=== PATIENT | female | born 1965 | race Caucasian/White ===

== ENCOUNTER 2025-03-05 14:33 | Inpatient (IN) ==
[2025-03-05] MEDS ORDERED: IOPAMIDOL 100 ML BOTTLE IV ONE (14:34)
[2025-03-05] MEDS: 0.9 % SODIUM CHLORIDE 1,000 ML IV ONE ×2 (15:38→16:59)
[2025-03-05] MEDS: KETOROLAC 15 MG/ML VIAL IV ONE ×2 (15:38→16:55)
[2025-03-05 16:16] LABS: ALT/SGPT 28 U/L (<40); AST/SGOT 33 U/L (<32); Albumin 3.0 gm/dL (3.2-5.2); Albumin/Globulin Ratio 0.9 (1.0-2.3); Alkaline Phosphatase 132 U/L (39-117); Anion Gap 14.0 (8.0-16.0); Bilirubin,Total 0.6 mg/dL (0.1-1.0); Blood Urea Nitrogen 19 mg/dL (6-20); Calcium 8.9 mg/dL (8.6-10.4); Carbon Dioxide 19 mmol/L (22-30); Chloride 95 mmol/L (96-108); Globulin 3.5 gm/dL (2.2-3.7); Glucose 314 mg/dL (70-105); Potassium 4.0 mmol/L (3.3-5.1); Sodium 128 mmol/L (133-145)
[2025-03-05 16:53] LABS: Basophils # (Auto) 0.03 K/mcL (0.00-0.30); Basophils % (Auto) 0.3 % (0.0-2.0); Eosinophils # (Auto) 0.02 K/mcL (0.00-0.70); Eosinophils % (Auto) 0.2 % (0.0-7.0); Hematocrit 34.9 % (34.1-44.9); Hemoglobin 12.1 g/dL (11.2-15.7); Lymphocytes # (Auto) 0.37 K/mcL (1.50-4.80); Lymphocytes % (Auto) 3.4 % (15.5-49.0); Mean Corpuscular HGB Conc 34.7 g/dL (31.0-36.0); Monocytes # (Auto) 0.36 K/mcL (0.10-0.90); Monocytes % (Auto) 3.3 % (1.0-12.0); Neutrophils % (Auto) 92.0 % (38.0-78.0); Platelet Count 183 K/mcL (140-440); RBC 3.76 M/mcL (3.59-5.38); WBC 11.0 K/mcL (4.5-11.0)
[2025-03-05] MEDS: SODIUM CHLORIDE IV ONE (16:59)
[2025-03-05] MEDS: PIPERACILLIN SODIUM/TAZOBACTAM 3.375 GM in DEXTROSE 5% IN WATER 50 ML IV ONE (17:06)
[2025-03-05 17:27] LABS: Bacteria,Urine Many /hpf (0); Bilirubin,Urine Negative (Negative); Color,Urine Yellow; Glucose,Urine (UA) 100 mg/dL (Negative); Ketones,Urine Negative (Negative); Leukocyte Esterase,Urine Small /uL (Negative); PH,Urine 5.5 (5.0-9.0); Protein,Urine 100 mg/dL (Negative); Specific Gravity,Urine 1.015 (1.000-1.035); Urobilinogen,Urine Normal
[2025-03-05] MEDS: NOREPINEPHRINE 250 ML IV SCH (17:35)
[2025-03-05] MEDS: 0.9 % SODIUM CHLORIDE 250 ML IV SCH (18:35)
[2025-03-05] MEDS ORDERED: VANCOMYCIN PER PHARMACY IV SCH (20:31)
[2025-03-05] MEDS ORDERED: ONDANSETRON 4 MG/2 ML VIAL IV PRN (20:31)
[2025-03-05] MEDS ORDERED: DEXTROSE 31 GM ORAL.SUSP PO PRN (20:31)
[2025-03-05] MEDS ORDERED: DEXTROSE 50% 50 ML VIAL IV PRN (20:31)
[2025-03-05] MEDS: ACETAMINOPHEN 1,000 MG/100 ML BAG IV SCH (20:40)
[2025-03-05] MEDS: 0.9 % SODIUM CHLORIDE 1,000 ML IV SCH (20:41)
[2025-03-05] MEDS: HYDROmorphone 0.5 MG/0.5 ML SYRINGE IV PRN (20:41)
[2025-03-05] MEDS: HYDROmorphone 0.5 MG/0.5 ML SYRINGE ONE (20:47)
[2025-03-05] MEDS: ACETAMINOPHEN 1,000 MG/100 ML BAG IV ONE (20:48)
[2025-03-05] MEDS: PIPERACILLIN SODIUM/TAZOBACTAM 3.375 GM in DEXTROSE 5% IN WATER 100 ML IV SCH (21:08)
[2025-03-05 21:14] LABS: ALT/SGPT 25 U/L (<40); AST/SGOT 29 U/L (<32); Albumin 2.9 gm/dL (3.2-5.2); Albumin/Globulin Ratio 0.9 (1.0-2.3); Alkaline Phosphatase 122 U/L (39-117); Anion Gap 13.0 (8.0-16.0); Bilirubin,Direct 0.3 mg/dL (<0.3); Bilirubin,Total 0.7 mg/dL (0.1-1.0); Blood Urea Nitrogen 20 mg/dL (6-20); Calcium 8.6 mg/dL (8.6-10.4); Carbon Dioxide 19 mmol/L (22-30); Chloride 98 mmol/L (96-108); Globulin 3.3 gm/dL (2.2-3.7); Glucose 329 mg/dL (70-105); Phosphorous 2.1 mg/dL (2.5-4.5); Potassium 3.8 mmol/L (3.3-5.1); Sodium 130 mmol/L (133-145); Triglycerides 187 mg/dL (<150); Uric Acid 4.3 mg/dL (2.5-8.0)
[2025-03-05] MEDS: INSULIN LISPRO 1 UNIT/0.01 ML UNIT SQ SCH (21:16)
[2025-03-05] MEDS: VANCOMYCIN 1,500 MG in 0.9 % SODIUM CHLORIDE 500 ML IV ONE (21:57)
[2025-03-05] MEDS: 0.9 % SODIUM CHLORIDE 10 ML SYRINGE IV SCH (21:57)
[2025-03-05] MEDS: PIPERACILLIN SODIUM/TAZOBACTAM 4.5 GM in DEXTROSE 5% IN WATER 100 ML IV SCH (21:57)
[2025-03-06 06:22] LABS: ALT/SGPT 22 U/L (<40); AST/SGOT 25 U/L (<32); Albumin 2.7 gm/dL (3.2-5.2); Albumin/Globulin Ratio 0.9 (1.0-2.3); Alkaline Phosphatase 114 U/L (39-117); Anion Gap 11.0 (8.0-16.0); Bilirubin,Direct 0.2 mg/dL (<0.3); Bilirubin,Total 0.5 mg/dL (0.1-1.0); Blood Urea Nitrogen 17 mg/dL (6-20); Calcium 8.3 mg/dL (8.6-10.4); Carbon Dioxide 20 mmol/L (22-30); Chloride 101 mmol/L (96-108); Globulin 3.1 gm/dL (2.2-3.7); Glucose 362 mg/dL (70-105); Phosphorous 2.1 mg/dL (2.5-4.5); Potassium 3.4 mmol/L (3.3-5.1); Sodium 132 mmol/L (133-145); Triglycerides 158 mg/dL (<150); Uric Acid 3.8 mg/dL (2.5-8.0)
[2025-03-06 06:39] LABS: Basophils # (Auto) 0.01 K/mcL (0.00-0.30); Basophils % (Auto) 0.1 % (0.0-2.0); Eosinophils # (Auto) 0.02 K/mcL (0.00-0.70); Eosinophils % (Auto) 0.2 % (0.0-7.0); Hematocrit 30.3 % (34.1-44.9); Hemoglobin 10.3 g/dL (11.2-15.7); Lymphocytes # (Auto) 0.42 K/mcL (1.50-4.80); Lymphocytes % (Auto) 3.9 % (15.5-49.0); Mean Corpuscular HGB Conc 34.0 g/dL (31.0-36.0); Monocytes # (Auto) 0.50 K/mcL (0.10-0.90); Monocytes % (Auto) 4.6 % (1.0-12.0); Neutrophils % (Auto) 90.7 % (38.0-78.0); Platelet Count 153 K/mcL (140-440); RBC 3.20 M/mcL (3.59-5.38); WBC 10.9 K/mcL (4.5-11.0)
[2025-03-06] MEDS: INSULIN LISPRO 1 UNIT/0.01 ML UNIT SQ SCH ×2 (08:04→16:38)
[2025-03-06] MEDS: FEXOFENADINE 180 MG TABLET PO SCH (08:19)
[2025-03-06] MEDS: EZETIMIBE 10 MG TABLET PO SCH (08:19)
[2025-03-06] MEDS: ENOXAPARIN 40 MG/0.4 ML SYRINGE SQ SCH (08:20)
[2025-03-06] MEDS: ZINC SULFATE 50 MG CAPSULE PO SCH (08:20)
[2025-03-06] MEDS: ESTRADIOL 1 MG TABLET PO SCH (08:20)
[2025-03-06] MEDS: LEVOTHYROXINE 50 MCG TABLET PO SCH (08:20)
[2025-03-06] MEDS: GABAPENTIN 300 MG CAPSULE PO SCH (08:20)
[2025-03-06] MEDS: NEUTRA PHOS 1 PACKET PO SCH (08:23)
[2025-03-06 08:34] LABS: Estimated Average Glucose(eAG) 174.0 mg/dL; Hemoglobin A1C 7.7 % Hgb (4.0-6.0)
[2025-03-06] MEDS: LISDEXAMFETAMINE 30 MG PO SCH (09:04)
[2025-03-06] MEDS: VANCOMYCIN 1,000 MG in 0.9 % SODIUM CHLORIDE 250 ML IV SCH (10:08)
[2025-03-06] MEDS: LIOTHYRONINE 5 MCG TABLET PO SCH (10:08)
[2025-03-06] MEDS ORDERED: DEXTROSE 50% 50 ML VIAL IV PRN (15:25)
[2025-03-06] MEDS ORDERED: DEXTROSE 31 GM ORAL.SUSP PO PRN (15:25)
[2025-03-06] MEDS ORDERED: LEVALBUTEROL 1.25 MG/3 ML AMPUL.NEB NEB PRN (15:29)
[2025-03-06] MEDS ORDERED: [UNRECOGNIZED DRUG - OTHER] SUB-Q SCH (15:30)
[2025-03-06] MEDS ORDERED: [UNRECOGNIZED DRUG - OTHER] IV SCH (15:30)
[2025-03-06] MEDS ORDERED: traMADol (PP) 50 MG TABLET (#4) PO SCH (15:30)
[2025-03-06] MEDS: NAPROXEN 250 MG TABLET PO SCH (16:41)
[2025-03-06] MEDS ORDERED: [UNRECOGNIZED DRUG - OTHER] PO SCH (21:00)
[2025-03-06] MEDS ORDERED: CRANBERRY FRUIT PO SCH (21:00)
[2025-03-06] MEDS ORDERED: DIGESTIVE ENZYMES PO SCH (21:00)
[2025-03-06] MEDS: VITAMIN D3 25 MCG TABLET PO SCH (21:10)
[2025-03-06] MEDS: GLUCOSAMINE PO SCH (21:11)
[2025-03-06] MEDS: COLLAGEN PO SCH (21:11)
[2025-03-06] MEDS: MONTELUKAST 10 MG TABLET PO SCH (21:11)
[2025-03-06] MEDS: Progesterone Micronized 200 mg capsule PO SCH (21:12)
[2025-03-06] MEDS: INSULIN GLARGINE, HUMAN 1 UNIT/0.01 ML SQ SCH (21:40)
[2025-03-07] MEDS: LEVALBUTEROL 1.25 MG/3 ML AMPUL.NEB NEB PRN (04:45)
[2025-03-07 07:28] LABS: Basophils # (Auto) 0.08 K/mcL (0.00-0.30); Basophils % (Auto) 0.9 % (0.0-2.0); Eosinophils # (Auto) 0.30 K/mcL (0.00-0.70); Eosinophils % (Auto) 3.2 % (0.0-7.0); Hematocrit 36.9 % (34.1-44.9); Hemoglobin 12.3 g/dL (11.2-15.7); Lymphocytes # (Auto) 0.87 K/mcL (1.50-4.80); Lymphocytes % (Auto) 9.3 % (15.5-49.0); Mean Corpuscular HGB Conc 33.3 g/dL (31.0-36.0); Monocytes # (Auto) 0.44 K/mcL (0.10-0.90); Monocytes % (Auto) 4.7 % (1.0-12.0); Neutrophils % (Auto) 81.3 % (38.0-78.0); Platelet Count 198 K/mcL (140-440); RBC 3.90 M/mcL (3.59-5.38); WBC 9.4 K/mcL (4.5-11.0)
[2025-03-07 08:33] LABS: ALT/SGPT 23 U/L (<40); AST/SGOT 23 U/L (<32); Albumin 2.6 gm/dL (3.2-5.2); Albumin/Globulin Ratio 0.8 (1.0-2.3); Alkaline Phosphatase 146 U/L (39-117); Anion Gap 12.0 (8.0-16.0); Bilirubin,Total 0.5 mg/dL (0.1-1.0); Blood Urea Nitrogen 15 mg/dL (6-20); Calcium 8.5 mg/dL (8.6-10.4); Carbon Dioxide 20 mmol/L (22-30); Chloride 100 mmol/L (96-108); Globulin 3.2 gm/dL (2.2-3.7); Glucose 283 mg/dL (70-105); Phosphorous 2.5 mg/dL (2.5-4.5); Potassium 3.1 mmol/L (3.3-5.1); Sodium 132 mmol/L (133-145)
[2025-03-07] MEDS: GABAPENTIN 300 MG CAPSULE PO SCH ×2 (09:10→21:08)
[2025-03-07] MEDS ORDERED: TESTOSTERONE PELLET subcut SCH (11:30)
[2025-03-07] MEDS ORDERED: FLUTICASONE FUROATE VILANTEROL INH PRN (11:38)
[2025-03-07] MEDS ORDERED: SUPPORT PO SCH (21:00)
[2025-03-07] MEDS ORDERED: PROGESTERONE MICRONIZED 200 MG PO SCH (21:00)
[2025-03-07] MEDS: INSULIN GLARGINE, HUMAN 1 UNIT/0.01 ML SQ SCH (21:16)
[2025-03-07] MEDS: prednisoLONE 1% OPHTH DROPS 1ML BOTTLE OU SCH (21:20)
[2025-03-08 06:12] LABS: Basophils # (Auto) 0.03 K/mcL (0.00-0.30); Basophils % (Auto) 0.3 % (0.0-2.0); Eosinophils # (Auto) 0.34 K/mcL (0.00-0.70); Eosinophils % (Auto) 2.9 % (0.0-7.0); Hematocrit 29.5 % (34.1-44.9); Hemoglobin 9.8 g/dL (11.2-15.7); Lymphocytes # (Auto) 1.08 K/mcL (1.50-4.80); Lymphocytes % (Auto) 9.1 % (15.5-49.0); Mean Corpuscular HGB Conc 33.2 g/dL (31.0-36.0); Monocytes # (Auto) 0.97 K/mcL (0.10-0.90); Monocytes % (Auto) 8.1 % (1.0-12.0); Neutrophils % (Auto) 78.2 % (38.0-78.0); Platelet Count 196 K/mcL (140-440); RBC 3.10 M/mcL (3.59-5.38); WBC 11.9 K/mcL (4.5-11.0)
[2025-03-08 06:39] LABS: Phosphorous 2.3 mg/dL (2.5-4.5)
[2025-03-08 06:54] LABS: ALT/SGPT 18 U/L (<40); AST/SGOT 19 U/L (<32); Albumin 2.5 gm/dL (3.2-5.2); Albumin/Globulin Ratio 0.8 (1.0-2.3); Alkaline Phosphatase 177 U/L (39-117); Anion Gap 11.0 (8.0-16.0); Bilirubin,Total 0.3 mg/dL (0.1-1.0); Blood Urea Nitrogen 17 mg/dL (6-20); Calcium 8.1 mg/dL (8.6-10.4); Carbon Dioxide 19 mmol/L (22-30); Chloride 104 mmol/L (96-108); Globulin 3.1 gm/dL (2.2-3.7); Glucose 147 mg/dL (70-105); Potassium 3.5 mmol/L (3.3-5.1); Sodium 134 mmol/L (133-145)
[2025-03-08] MEDS: FISH OIL 1,000 MG CAPSULE PO SCH (08:25)
[2025-03-08] MEDS: MULTIVIT,THER IRON,CA,FA & MIN 1 TABLET PO SCH (08:25)
[2025-03-08] MEDS: OMEPRAZOLE 20 MG CAPSULE PO SCH (08:27)
[2025-03-08] MEDS: POTASSIUM CHLORIDE 20 MEQ/15 ML ML PO SCH (08:28)
[2025-03-08] MEDS: cefTRIAXone 2 GM in DEXTROSE 5% IN WATER 50 ML IV SCH (14:19)
[2025-03-08] MEDS: CYCLOBENZAPRINE (PP) 10 MG TABLET PO SCH (22:26)
[2025-03-08] MEDS: CYCLOBENZAPRINE 10 MG TABLET PO SCH (23:03)
[2025-03-09 06:34] LABS: Basophils # (Auto) 0.03 K/mcL (0.00-0.30); Basophils % (Auto) 0.3 % (0.0-2.0); Eosinophils # (Auto) 0.19 K/mcL (0.00-0.70); Eosinophils % (Auto) 1.8 % (0.0-7.0); Hematocrit 29.6 % (34.1-44.9); Hemoglobin 10.0 g/dL (11.2-15.7); Lymphocytes # (Auto) 0.45 K/mcL (1.50-4.80); Lymphocytes % (Auto) 4.4 % (15.5-49.0); Mean Corpuscular HGB Conc 33.8 g/dL (31.0-36.0); Monocytes # (Auto) 0.36 K/mcL (0.10-0.90); Monocytes % (Auto) 3.5 % (1.0-12.0); Neutrophils % (Auto) 89.5 % (38.0-78.0); Platelet Count 231 K/mcL (140-440); RBC 3.16 M/mcL (3.59-5.38); WBC 10.3 K/mcL (4.5-11.0)
[2025-03-09 07:03] LABS: ALT/SGPT 20 U/L (<40); AST/SGOT 22 U/L (<32); Albumin 2.6 gm/dL (3.2-5.2); Albumin/Globulin Ratio 0.9 (1.0-2.3); Alkaline Phosphatase 264 U/L (39-117); Anion Gap 12.0 (8.0-16.0); Bilirubin,Total 0.4 mg/dL (0.1-1.0); Blood Urea Nitrogen 17 mg/dL (6-20); Calcium 8.2 mg/dL (8.6-10.4); Carbon Dioxide 19 mmol/L (22-30); Chloride 104 mmol/L (96-108); Globulin 3.0 gm/dL (2.2-3.7); Glucose 119 mg/dL (70-105); Phosphorous 2.4 mg/dL (2.5-4.5); Potassium 3.5 mmol/L (3.3-5.1); Sodium 135 mmol/L (133-145)
[2025-03-09] MEDS ORDERED: IOPAMIDOL 100 ML BOTTLE IV ONE (09:28)
[2025-03-10 06:53] LABS: Basophils # (Auto) 0.02 K/mcL (0.00-0.30); Basophils % (Auto) 0.1 % (0.0-2.0); Eosinophils # (Auto) 0.28 K/mcL (0.00-0.70); Eosinophils % (Auto) 1.8 % (0.0-7.0); Hematocrit 28.1 % (34.1-44.9); Hemoglobin 9.3 g/dL (11.2-15.7); Lymphocytes # (Auto) 1.40 K/mcL (1.50-4.80); Lymphocytes % (Auto) 8.8 % (15.5-49.0); Mean Corpuscular HGB Conc 33.1 g/dL (31.0-36.0); Monocytes # (Auto) 1.41 K/mcL (0.10-0.90); Monocytes % (Auto) 8.8 % (1.0-12.0); Neutrophils % (Auto) 79.7 % (38.0-78.0); Platelet Count 303 K/mcL (140-440); RBC 2.99 M/mcL (3.59-5.38); WBC 16.0 K/mcL (4.5-11.0)
[2025-03-10 06:57] LABS: Phosphorous 3.0 mg/dL (2.5-4.5)
[2025-03-10 06:59] LABS: ALT/SGPT 19 U/L (<40); AST/SGOT 22 U/L (<32); Albumin 2.5 gm/dL (3.2-5.2); Albumin/Globulin Ratio 0.8 (1.0-2.3); Alkaline Phosphatase 269 U/L (39-117); Anion Gap 11.0 (8.0-16.0); Bilirubin,Total 0.2 mg/dL (0.1-1.0); Blood Urea Nitrogen 13 mg/dL (6-20); Calcium 8.1 mg/dL (8.6-10.4); Carbon Dioxide 20 mmol/L (22-30); Chloride 104 mmol/L (96-108); Globulin 3.1 gm/dL (2.2-3.7); Glucose 153 mg/dL (70-105); Potassium 3.8 mmol/L (3.3-5.1); Sodium 135 mmol/L (133-145)
[2025-03-11 06:33] LABS: Basophils # (Auto) 0.02 K/mcL (0.00-0.30); Basophils % (Auto) 0.2 % (0.0-2.0); Eosinophils # (Auto) 0.27 K/mcL (0.00-0.70); Eosinophils % (Auto) 2.3 % (0.0-7.0); Hematocrit 28.0 % (34.1-44.9); Hemoglobin 9.4 g/dL (11.2-15.7); Lymphocytes # (Auto) 1.56 K/mcL (1.50-4.80); Lymphocytes % (Auto) 13.3 % (15.5-49.0); Mean Corpuscular HGB Conc 33.6 g/dL (31.0-36.0); Monocytes # (Auto) 0.90 K/mcL (0.10-0.90); Monocytes % (Auto) 7.7 % (1.0-12.0); Neutrophils % (Auto) 74.9 % (38.0-78.0); Platelet Count 385 K/mcL (140-440); RBC 2.98 M/mcL (3.59-5.38); WBC 11.7 K/mcL (4.5-11.0)
[2025-03-11 06:39] LABS: Phosphorous 3.9 mg/dL (2.5-4.5)
[2025-03-11 06:41] LABS: ALT/SGPT 18 U/L (<40); AST/SGOT 20 U/L (<32); Albumin 2.5 gm/dL (3.2-5.2); Albumin/Globulin Ratio 0.8 (1.0-2.3); Alkaline Phosphatase 262 U/L (39-117); Anion Gap 11.0 (8.0-16.0); Bilirubin,Total < 0.2 mg/dL (0.1-1.0); Blood Urea Nitrogen 10 mg/dL (6-20); Calcium 8.2 mg/dL (8.6-10.4); Carbon Dioxide 21 mmol/L (22-30); Chloride 106 mmol/L (96-108); Globulin 3.1 gm/dL (2.2-3.7); Glucose 109 mg/dL (70-105); Potassium 3.9 mmol/L (3.3-5.1); Sodium 138 mmol/L (133-145)
[2025-03-11] MEDS ORDERED: HEPARIN 500 UNIT/5 ML SYRINGE IV ONE (10:10)
[2025-03-11 11:26] VITALS: TEMP 99.1
[2025-03-11 13:40] VITALS: O2SAT 96
== END 2025-03-11 12:37 | disposition home or self-care (01) | DRG 871 ==
LOC: ED 14:33 → ICU 20:20 → SUATTDRO 20:20 → MEDSUR 03-08 11:38
PROVIDERS: ADMIT Internal Medicine; ATTEND Internal Medicine